=== PATIENT | female | born 1960 | race Caucasian/White ===

== ENCOUNTER 2017-12-12 10:07 | Emergency (ER) | payer OTHER ==
[~2017-12-12] VITALS: Ht 154.9 cm; Wt 73.7 kg
[~2017-12-12 10:07] MED LIST: Claritin-D 24 Hour PO; LISINOPRIL5 MG PO; Medrol Dosepak PO; Theragran-M,Centrum, PO; Wellbutrin PO; Zestril,Prinivil PO; Zithromax PO
[2017-12-12] MEDS ORDERED: MOTRIN600 MG PO (12:06)
[2017-12-12] MEDS ORDERED: FLEXERIL10 MG PO (12:06)
[2017-12-12 12:34] VITALS: BP 126/74
== END 2017-12-12 12:34 | disposition home or self-care (01) ==
LOC: EME 10:07
DX: S13.4XXA Sprain of ligaments of cervical spine, initial encounter (principal); S20.212A Contusion of left front wall of thorax, initial encounter; S40.012A Contusion of left shoulder, initial encounter; V49.40XA Driver injured in collision with unspecified motor vehicles in traffic accident, initial encounter; Y92.410 Unspecified street and highway as the place of occurrence of the external cause; I10 Essential (primary) hypertension; E78.5 Hyperlipidemia, unspecified; Z87.891 Personal history of nicotine dependence
CPT/HCPCS: 71046; 73030; 99281; 99284